=== PATIENT | male | born 1950 | race Caucasian/White ===

== ENCOUNTER 2022-04-29 09:14 | Outpatient (REF) | payer OTHER, SELFPAY ==
--- NOTE | ~2022-04-29 | XR_ITS ---
EXAMINATION: XR HIP, RIGHT CLINICAL INFORMATION: Right hip peripheral neuropathy. History of prostate carcinoma. COMPARISON: None TECHNIQUE: Two views of the right hip. FINDINGS: The femoral head is well-positioned within the intact acetabulum. The hip joint space is maintained. There appears to be a subchondral cyst of the superolateral acetabulum. However, there are no prominent osteophytes of the minimally degenerated hip. No proximal femoral fracture or osteonecrosis. Radiation seeds are seen at the level of the prostate gland. Mild atherosclerotic calcification of the femoral artery. XR/XR hip RT min 2V IMPRESSION: * No radiographic evidence of metastatic disease at the right hip. * Minimal osteoarthrosis of the right hip.
== END 2022-04-29 09:15 | disposition home or self-care (01) ==
LOC: HO.XRAY 09:14
PROVIDERS: PCP Internal Medicine; Visit Provider Psychiatry & Neurology Neurology
DX: G62.9 Polyneuropathy, unspecified (principal)
CPT/HCPCS: 73502